=== PATIENT | male | born 1980 | race Caucasian/White ===

== ENCOUNTER 2020-07-31 07:32 | Emergency (ER) | payer OTHER, SELFPAY ==
[2020-07-31 07:45] VITALS: BP 169/105; PULSE 95; RESP 16; TEMP 36.8; O2SAT 97; BMI 28.2
--- NOTE | 2020-07-31 08:19 | DI.RAD.S_ITS ---
PROCEDURE: XR SHOULDER RT MIN 2V INDICATIONS: trauma TECHNIQUE: 3 views of the shoulder were acquired. COMPARISON: [facility] [place], [place], BILATERAL SHOULDER, 04/13/2016, 7:08. FINDINGS: Bones: No fractures or dislocations. No suspicious bony lesions. Visualized ribs appear intact. Soft tissues: No suspicious soft tissue calcifications. IMPRESSION: No acute osseous abnormality. Dictated by: Lalo Salazar M.D. on 07/31/2020 at 8:00 Approved by: Lalo Salazar M.D. on 07/31/2020 at 8:02
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
[2020-07-31 09:30] VITALS: BP 141/95; PULSE 78; RESP 17; O2SAT 98
== END 2020-07-31 09:46 | disposition home or self-care (01) ==
PROVIDERS: Emergency Provider Emergency Medicine
DX: S49.91XA Unspecified injury of right shoulder and upper arm, initial encounter (principal); S01.81XA Laceration without foreign body of other part of head, initial encounter; Y04.2XXA Assault by strike against or bumped into by another person, initial encounter; Y99.0 Civilian activity done for income or pay
CPT/HCPCS: 73030; 99281; 99283